=== PATIENT | male | born 1995 | race Hispanic/Latino ===

== ENCOUNTER 2023-12-01 20:54 | Emergency (ER) | payer BC ==
[~2023-12-01] VITALS: Ht 175.3 cm; Wt 100.0 kg
[~2023-12-01 20:54] MED LIST: HYDROCODON-ACE1 EA13 PO; NAPROSYN500 MG PO; ONDANSETRON ODT4 MG PO
[2023-12-01] MEDS ORDERED: ASPIRIN 81 MG CHEW PO ONE (21:15)
[2023-12-01 21:18] LABS: BASOPHILS 0.6 % (0-2); EOSINOPHILS 0.5 % (0-6); HEMATOCRIT 48.3 % (35.0-50.0); HEMOGLOBIN 16.8 g/dL (12.0-18.0); LYMPHOCYTES 18.6 % (24-44); MCH 30.5 (27-36); MCHC 34.8 g/dl (30-36); MCV 87.6 fl (81-99); MONOCYTES 3.7 % (0-12); NEUTROPHILS 76.6 % (39-80); PLATELET COUNT 279 K/uL (140-440); RBC 5.52 M/ul (4.3-5.7); RDW 13.7 (10.5-15.0)
[2023-12-01 21:37] LABS: ALBUMIN 4.5 g/dL (3.4-5.0); ALBUMIN/GLOBULIN RATIO 1.05 (1.1-2.4); BILIRUBIN, TOTAL 0.6 ng/dL (0.2-1.0); BUN/CREATININE RATIO 13.26 (6.0-28.6); CALCIUM 9.2 mg/dL (8.5-10.1); CREATININE, SERUM 0.98 mg/dL (0.70-1.30); PROTEIN, TOTAL 8.8 g/dL (6.4-8.2)
[2023-12-01] MEDS ORDERED: POTASSIUM CHLORIDE 10 MEQ TABCR PO ONE (22:00)
[2023-12-01] MEDS ORDERED: PANTOPRAZOLE SODIUM 40 MG TABEC PO ONE (22:00)
[2023-12-01] MEDS ORDERED: PROTONIX40 MG PO (22:10)
[2023-12-01] MEDS ORDERED: ONDANSETRON 4 MG HOME.PACK SL ONE (22:15)
[2023-12-01 22:24] VITALS: BP 151/78
--- NOTE | 2023-12-02 15:13 | EKG ---
[facility] [address] [facility] [place] [address] Signed Sinus tachycardia Right axis deviation Abnormal ECG No previous ECGs available Confirmed by Omar Patterson MD ([id number]) on 12/02/2023 3:13:25 PM Electronically Signed By: OMAR PATTERSON MD 12/02/23 1513 PATIENT NAME: ARCHANA HANKINS Electrocardiogram DATE OF : [birth year] PHYSICIAN: OMAR PATTERSON MD REPORT #: [id number] REPORT IS CONFIDENTIAL AND NOT TO BE RELEASED WITHOUT AUTHORIZATION
== END 2023-12-01 22:26 | disposition home or self-care (01) ==
LOC: ED 20:54
PROVIDERS: Emergency Medicine
DX: K29.70 Gastritis, unspecified, without bleeding (principal); F14.10 Cocaine abuse, uncomplicated; R00.0 Tachycardia, unspecified
CPT/HCPCS: 36415; 71045; 80053; 83690; 83735; 84484; 85025; 85379; 99284-25; A9270

== ENCOUNTER 2024-10-23 11:10 | Emergency (ER) | payer BC ==
[~2024-10-23] VITALS: Ht 175.3 cm; Wt 100.2 kg
[~2024-10-23 11:10] MED LIST changes: +PROTONIX40 MG PO
[2024-10-23] MEDS ORDERED: KETOROLAC TROMETHAMINE 15 MG/ML VIAL IM ONE (11:30)
[2024-10-23 11:39] LABS: BLOOD/HGB, URINE TRACE-I (Negative); KETONE, URINE NEGATIVE (Negative); LEUK ESTERASE, URINE NEGATIVE (negative); NITRITE, URINE NEGATIVE (negative)
[2024-10-23 11:45] LABS: BACTERIA, URINE NONE SEEN /hpf (negative); CASTS, URINE NONE SEEN \\lpf; CRYSTALS, URINE NONE SEEN (0-1+); EPITHELIAL CELLS, URINE 0 /lpf (0-1+); REFLEX CULTURE, URINE No (No)
[2024-10-23] MEDS ORDERED: FLOMAX0.4 MG PO (12:06)
[2024-10-23] MEDS ORDERED: TAMSULOSIN HCL 0.4 MG CAP PO ONE (12:15)
[2024-10-23 12:20] VITALS: BP 154/104
== END 2024-10-23 12:20 | disposition home or self-care (01) ==
LOC: ED 11:10
PROVIDERS: Emergency Medicine
DX: N13.2 Hydronephrosis with renal and ureteral calculous obstruction (principal)
CPT/HCPCS: 74176; 81001; 96372; 99284-25; J1885